=== PATIENT | female | born 1965 | race Two or more races ===

== ENCOUNTER 2024-04-05 13:39 | Emergency (ER) | payer MEDICAID, SELFPAY ==
[2024-04-05 13:43] VITALS: BMI 34.4
[2024-04-05 14:14] VITALS: BP 155/87; PULSE 96; RESP 20; TEMP 39.4; O2SAT 96
--- NOTE | 2024-04-05 14:34 | XR_ITS ---
Examination: PA and lateral chest 2 views TECHNIQUE: Upright PA and lateral chest 2 views. Exam date and time: April 05, 2024 1500 hours INDICATIONS: Fever and back pain beginning 4 days ago. FINDINGS: Normal heart size. The lungs are clear. The osseous structures are intact. IMPRESSION: No active disease.
[2024-04-05] MEDS: IBUPROFEN TAB 400 MG TABLET 800 MG PO (14:37)
--- NOTE | 2024-04-05 14:37 | PD.EDRME ---
Rapid Medical Screening Exam RME Arrival date/time: 04/05/24 13:39 58-year-old female currently on antibiotics for abdominal infection presents with complaints of fever generalized bodyaches and headache Chief Complaint: Headache Time Seen by Provider: 04/05/24 13:56 Vital signs: Vital Signs Temperature 103.0 F H 04/05/24 14:14 Pulse Rate 96 04/05/24 14:14 Respiratory Rate 20 04/05/24 14:14 Blood Pressure 155/87 H 04/05/24 14:14 Pulse Oximetry (%) 96 04/05/24 14:14 Oxygen Delivery Method Room Air 04/05/24 14:14
[2024-04-05 14:59] LABS: Basophils % (Auto) 0 % (0-2.5); Eosinophils % (Auto) 0 % (0-10); Hematocrit 42.9 % (36.0-46.0); Hemoglobin 14.6 g/dL (12.0-16.0); Immature Granulocytes % (Auto) 0 % (0-0); Immature Granulocytes Auto 0.01 Thou/mm3 (0.00-0.00); Lactate (Lactic Acid) 1.1 mMol/L (0.4-2.0); Lymphocytes # (Auto) 0.6 Thou/mm3 (1.0-4.8); Lymphocytes % (Auto) 15 % (10-50); Mean Corpuscular Hemoglobin 28.6 pg (25.0-35.0); Mean Corpuscular Volume 84 fL (80-100); Monocytes # (Auto) 0.1 Thou/mm3 (0.0-0.8); Monocytes % (Auto) 3 % (0-12); Neutrophils # (Auto) 3.1 Thou/mm3 (1.8-7.7); Neutrophils % (Auto) 81 % (37-80); Nucleated Red Blood Cell % 0 /100 WBC (0); Platelet Count 146 Thou/mm3 (140-440); RDW Standard Deviation 43.2 fL (36.4-46.3); White Blood Count 3.8 Thou/mm3 (3.6-11.0)
[2024-04-05 15:25] LABS: Collection Type, Urine Clean Catch
[2024-04-05 15:26] LABS: Alanine Aminotransferase 40 U/L (10-49); Albumin, Serum 4.4 gm/dL (3.4-4.8); Albumin/Globulin Ratio 1.3 (1.2-2.2); Alkaline Phosphatase 73 U/L (46-116); Anion Gap 8 (7-16); Aspartate Amino Transferase 30 U/L (0-34); BUN/Creatinine Ratio 9 Ratio (12-20); Bilirubin,Total 0.6 mg/dL (0.3-1.2); Blood Urea Nitrogen 8 mg/dL (9-23); Carbon Dioxide 28.9 mMol/L (20.0-31.0); Chloride 103 mMol/L (98-107); Creatinine (Component) 0.9 mg/dL (0.6-1.3); Estimated Creatinine Clearance 80.7 mL/min (>60); Globulin 3.4 gm/dL (2.3-3.5); Glucose 106 mg/dL (74-106); Lipase 51 U/L (12-53); Osmolality,Calculated 277 (275-295); Potassium 3.9 mMol/L (3.4-5.1); Sodium 140 mMol/L (136-145); Total Protein 7.8 gm/dL (5.7-8.2); eGFR > 60 See Note
[2024-04-05 15:34] LABS: Bilirubin,Urine Negative (Negative); Blood,Urine Negative (Negative); Clarity,Urine Clear (Clear/Hazy); Color,Urine Lt-Yellow (Lt Yel-Yel); Glucose, Urine Negative (Negative); Ketones,Urine Negative (Negative); Leukocyte Esterase,Urine Negative (Negative); Nitrite,Urine Negative (Negative); Protein,Urine Negative (Neg - Trace); RBC,Urine 3 /hpf (0-3); Specific Gravity,Urine 1.015 (1.001-1.035); Squamous Epithelial Cell,Urine 2 /hpf (0-5); Urobilinogen,Urine Negative mg/dL (0.0-1.0); WBC,Urine 1 /hpf (0-5)
[2024-04-05 20:27] VITALS: BP 124/67; PULSE 70; RESP 18; TEMP 36.8
[2024-04-05 21:00] VITALS: BP 114/72; PULSE 62; RESP 18; TEMP 36.8; O2SAT 97
--- NOTE | 2024-04-05 21:04 | PD.EDHA ---
ED Headache RME/HPI General Chief Complaint: Headache Stated Complaint: EVANS, FEVER, BLE PAIN, BACK PAIN Time Seen by Provider: 04/05/24 13:56 Source: patient Arrival date/time: 04/05/24 13:39 Mode of arrival: ambulatory Limitations: no limitations RME / HPI RME / HPI Narrative: 04/05/24 13:39 58-year-old female currently on antibiotics for abdominal infection presents with complaints of fever generalized bodyaches and headache Dr. Bustillos?s Main ED Evaluation: 58-year-old female presenting to the emergency department with complaints of persistent headache, eye pain, and bilateral lower extremity pain, along with fever and back pain. She reports that her symptoms began on and have worsened over the past week. The patient describes the pain in both her back and head as burning in nature, which has persisted for the past seven days. She also notes associated symptoms, including chills, muscle pain, and generalized body aches. The patient states that she was evaluated at [facility] yesterday but is now seeking further care due to ongoing symptoms without any significant relief. Related Data Home Medications ?Medication ?Instructions ?Recorded ?Confirmed ibuprofen 200 mg tablet 400 mg PO Q6HR PRN PAIN #0 tabs 07/06/14 Previous Rx's ?Medication ?Instructions ?Recorded Hydrocodone/Acetaminophen * (NORCO 1 tab PO Q6H PRN ABDOMINAL PAIN 07/09/14 7.5/325 *) #40 tabs acetaminophen 325 mg tablet (Pain 325 mg PO QID PRN fever 3 days #20 04/06/24 Relief (acetaminophen)) tabs ibuprofen 600 mg tablet 600 mg PO TID PRN fever 3 days #20 04/06/24 tabs ondansetron 4 mg disintegrating 4 mg PO Q8H PRN nausea and 04/06/24 tablet vomiting #20 tabs Allergies Allergy/AdvReac Type Severity Reaction Status Date / Time No Known Allergies Allergy Verified 04/05/24 13:41 Review of Systems Review of Systems Systems Reviewed: All systems reviewed, normal except as documented Past Medical History Past Medical History NEUROLOGIC: Negative Neurological Disorders CARDIAC: Positive Cardiac Disorders and Hypertension; Negative Congestive Heart Failure RESPIRATORY: Negative Respiratory Disorders or Chronic Obstructive Pulmonary Disease (COPD) GASTROINTESTINAL: Positive Gastrointestinal Disorders (H. Pylori) GENITOURINARY: Negative Genitourinary Disorders or Renal Disease MUSCULOSKELETAL: Negative Musculoskeletal Disorders ENT: Negative History of ENT Problems ENDOCRINE: Negative Endocrine Disorders, Diabetes Mellitus Type 1 or Diabetes Mellitus Type 2 HEMATOLOGIC: Negative Blood Disorders Surgical History SURGICAL: Positive Section Social History SMOKING STATUS: Never smoker ED Exam General Limitations: Present no limitations General appearance: Present alert and in no apparent distress Head Head exam: Present atraumatic Eye Eye exam: Present normal appearance, PERRL and EOMI ENT ENT exam: Present normal exam, normal oropharynx and mucous membranes moist Neck Neck exam: Present normal inspection, full ROM and trachea midline Chest Chest inspection: Present normal inspection and symmetric chest wall rise Respiratory Respiratory exam: Present normal lung sounds bilaterally Cardiovascular Cardiovascular exam: Present regular rate, normal rhythm and normal heart sounds Abdominal Exam Abdominal exam: Present soft and normal bowel sounds Extremities Exam Extremities exam: Present normal inspection and full ROM Back Exam Back exam: Present normal inspection and full ROM Neurological Exam Neurological exam: Present alert, oriented X3 and CN II-XII intact Psychiatric Psychiatric exam: Present normal affect and normal mood Skin Skin exam: Present warm, dry, intact and normal color Course Course Course Narrative: 1436 Sepsis alert initiated. Orders made at this time are congruent with ED Adult Sepsis Order List. Re-evaluation is to be completed. 2105 Sepsis reassessment performed consisting of lab review, vitals, physical exam including auscultation of heart, lungs, and visual evaluation of capillary refills, mucosal membranes and extremities. Quality Measures none Orders Category Date Time Status Bedside COVID-19 Antigen Test NOW Care 04/05/24 14:34 Active Bedside Influenza A&B Antigen Test NOW Care 04/05/24 14:[address] Screening NOW Care 04/05/24 21:[address] chest abdomen pelvis w Stat Exams 04/05/24 21:55 Completed XR chest 2V Stat Exams 04/05/24 14:34 Completed Blood Culture (Lab) Stat Lab 04/05/24 14:40 Received CBC Stat Lab 04/05/24 14:45 Completed Comprehensive Metabolic Panel Stat Lab 04/05/24 14:45 Completed Lactate (Lactic Acid) Stat Lab 04/05/24 14:45 Completed Lipase Stat Lab 04/05/24 14:45 Completed Procalcitonin Stat Lab 04/05/24 14:45 Completed Urinalysis Stat Lab 04/05/24 15:15 Completed Urine Culture Stat Lab 04/05/24 15:15 Received Ibuprofen Tab [Motrin Tab] Med 04/05/24 14:11 Discontinued 800 mg PO X1 ONE Sodium Chloride 0.9% 1000 ml [Ns] 1,848 ml Med 04/05/24 21:10 Discontinued IV 1,848 mls/hr Vital Signs Vital signs: Vital Signs Temperature 103.0 F H 04/05/24 14:14 Pulse Rate 96 04/05/24 14:14 Respiratory Rate 20 04/05/24 14:14 Blood Pressure 155/87 H 04/05/24 14:14 Pulse Oximetry (%) 96 04/05/24 14:14 Oxygen Delivery Method Room Air 04/05/24 14:14 Headache MDM Narrative MDM Narrative:: The differential diagnosis includes appendicitis, diverticulitis, nephrolithiasis (kidney stone), urinary tract infection (UTI), and a viral illness. Scribe Attestation: I, Regis Slade, am scribing for and in the presence of Dr. Bustillos. Provider Notation: Although this document has been carefully reviewed, there may still be some phonetic and other typographical errors. These errors are purely grammatical due to imperfections in the software program and should not be construed in any way to compromise the substance of the patient's medical care during this visit. Patient data External records reviewed:: [facility] previous records Clinical information provided by:: patient Social determinants that could affect healthcare access:: none Patient has the following chronic illnesses:: see PMH How is presenting disease/condition affected by chronic disease/condition?: uneffected by Evaluation data The following diagnostics were reviewed and interpreted by me:: lab results, radiology exam(s) and EKG tracing(s) Lab and/or radiology exams considered but not ordered:: none Interpretation Summary: I personally reviewed the radiology data and agree with the radiologist's interpretation. Examination: PA and lateral chest 2 views TECHNIQUE: Upright PA and lateral chest 2 views. Exam date and time: April 05, 2024 1500 hours INDICATIONS: Fever and back pain beginning 4 days ago. FINDINGS: Normal heart size. The lungs are clear. The osseous structures are intact. IMPRESSION: No active disease. Dictated By: Juan A Bhandari MD Examination: CT chest abdomen pelvis with intravenous contrast Time of exam: April 05, 2024 1052 hours INDICATIONS: Headache back pain fever right lower abdominal pain today Findings: No thoracic aortic aneurysmal dilatation No pulmonary artery emboli on this non-CTA study No paratracheal tracheobronchial or bronchopulmonary adenopathy 3 mm pulmonary nodule left upper lobe image 144 No lobar pneumonia or pulmonary edema Absent gallbladder No liver or splenic lesion No pancreatic mass Focal areas of edema in the right kidney for instance axial image 159 No renal or ureteral calculi, no hydronephrosis Aorta normal size Tiny fat-containing umbilical hernia Normal appendix No bowel obstruction No diverticulitis Mildly distended urinary bladder Absent uterus No adnexal mass Advanced degenerative disc disease L4-L5, L5-S1 IMPRESSION: 3 mm pulmonary nodule left upper lobe, recommend 6 month follow-up CT chest without contrast to document stability of this nodule No mediastinal lymphadenopathy, no pneumonia or pulmonary edema Subtle edema in the right kidney, consider pyelonephritis, no renal or ureteral calculi, no hydronephrosis Normal appendix No bowel obstruction diverticulitis or free air Advanced degenerative disc disease L4-L5, L5-S1 Dictated By: Juan A Bhandari MD Medications / Prescriptions Medications or Prescriptions considered but not ordered:: none Medication administrations:: Medication Administration History Discontinued Medications Sodium Chloride (Ns) 1,848 mls @ 1,848 mls/hr 30 ml/kg infuse over 60 min (1848 ml) IV .Q1H ONE Stop: 04/05/24 22:09 Last Infusion: 04/05/24 22:43 Dose: Infused Documented By: Admin: 04/05/24 21:21 Dose: 1,848 mls/hr Documented By: FAUSTO Comments: 1848 Ibuprofen (Ibuprofen Tab 400 Mg Tablet) 800 mg PO X1 ONE Stop: 04/05/24 14:12 Last Admin: 04/05/24 14:37 Dose: 800 mg Documented By: KF as above, if any Consultations Consultation(s) initiated? (list below): No Diagnosis Differential diagnosis headache: other (see narrative) Most likely diagnosis given after review of the tests above:: see clinical impression Admission Indicated Admission indicated?: not indicated Admission Request Was there a request for admission?: No Disposition Plan Disposition Plan: Discharge Discharge Attestation Discharge Attestation: The patient and all family members were given an opportunity to ask questions and understood the discharge instructions. Discharge instructions specifically effects, indications for sooner follow up or return to the emergency department, and the expected course of current diagnosis. Patient condition: Stable Discharge Plan Plan Patient Disposition: HOME (Self Care) Patient condition on transfer: Stable Prescriptions/Referrals Prescriptions/Med Rec: New ibuprofen 600 mg tablet 600 mg PO TID PRN (Reason: fever) 3 Days Qty: 20 0RF Rx Instructions: Take with food acetaminophen [Pain Relief (acetaminophen)] 325 mg tablet 325 mg PO QID PRN (Reason: fever) 3 Days Qty: 20 0RF ondansetron 4 mg tablet,disintegrating 4 mg PO Q8H PRN (Reason: nausea and vomiting) Qty: 20 0RF No Action ibuprofen 200 MG tablet 400 mg PO Q6HR PRN (Reason: PAIN) Qty: 0 Hydrocodone/Acetaminophen * (NORCO 7.5/325 *) 1 TAB tablet 1 tab PO Q6H PRN (Reason: ABDOMINAL PAIN) Qty: 40 0RF Referrals: No Primary/Family,Physician [Primary Care Provider] - In 1 week Problem List Clinical Impression: Fever, Pulmonary nodule Patient/Caregiver Discharge Instructions Education Materials: ED FUO Adult, ED Pulmonary Nodule, Solitary Additional Instructions: 1. YOU HAVE A 3 mm pulmonary nodule left upper lobe, recommend 6 month follow-up CT chest without contrast to document stability of this nodule, that is emergency however you will need to get followed up with your primary care physician. Failure to follow-up can lead to missed or failed diagnosis. 2. You can take [id number] Tylenol 650 mg 3 times a day for fever. You can additionally add Motrin 600 mg 3 times a day with food for the next 2 to 3 days to control your fever if needed. 3. Stay hydrated with Pedialyte and Gatorade. Return to emergency department for any worsening symptoms, you cannot tolerate liquids, or any other concerns Print Language: [place] Stand Alone Forms: [employer] Award Info., Work/School Release, Patient Portal Info Letter
--- NOTE | 2024-04-05 21:08 | PC.NURSE ---
Initial contact with pt, seen by Dr. Bustillos.
[2024-04-05] MEDS: SODIUM CHLORIDE 0.9% 1000 ML 1,848 ML 1848 ML IV (21:21)
--- NOTE | 2024-04-05 21:55 | XR_ITS ---
Examination: CT chest with intravenous contrast CT abdomen with intravenous contrast CT pelvis with intravenous contrast 2-D coronal and sagittal reconstructions Time of exam: April 05, 2024 1052 hours INDICATIONS: Headache back pain fever right lower abdominal pain today CTDI: vol (mGy) : 26.71 DLP: (mGycm): 1357 Technique: Multiple axial images of the chest, abdomen and pelvis with intravenous contrast, 3.0 mm slice thickness. Images obtained post intravenous injection Isovue 370 60 cc. 2-D sagittal and coronal reconstructions. Low dose protocols were performed. One or more of the following dose reduction techniques were used; automated exposure control, adjustment of the mA and/or KV according to patient size, use of iterative reconstruction technique. Findings: No thoracic aortic aneurysmal dilatation No pulmonary artery emboli on this non-CTA study No paratracheal tracheobronchial or bronchopulmonary adenopathy 3 mm pulmonary nodule left upper lobe image 144 No lobar pneumonia or pulmonary edema Absent gallbladder No liver or splenic lesion No pancreatic mass Focal areas of edema in the right kidney for instance axial image 159 No renal or ureteral calculi, no hydronephrosis Aorta normal size Tiny fat-containing umbilical hernia Normal appendix No bowel obstruction No diverticulitis Mildly distended urinary bladder Absent uterus No adnexal mass Advanced degenerative disc disease L4-L5, L5-S1 IMPRESSION: 3 mm pulmonary nodule left upper lobe, recommend 6 month follow-up CT chest without contrast to document stability of this nodule No mediastinal lymphadenopathy, no pneumonia or pulmonary edema Subtle edema in the right kidney, consider pyelonephritis, no renal or ureteral calculi, no hydronephrosis Normal appendix No bowel obstruction diverticulitis or free air Advanced degenerative disc disease L4-L5, L5-S1
[2024-04-05 22:00] VITALS: BP 119/59; PULSE 68; RESP 18; O2SAT 98
--- NOTE | 2024-04-05 22:46 | PC.NURSE ---
To ct-scan via gurney.
[2024-04-05 23:16] VITALS: BP 116/73; PULSE 77; RESP 18; TEMP 37; O2SAT 98
[2024-04-06] VITALS: BP 117/58; PULSE 68; RESP 18; O2SAT 95
[2024-04-06 01:08] VITALS: BP 126/75; PULSE 63; RESP 18; TEMP 37.3; O2SAT 95
[2024-04-06 03:00] VITALS: BP 119/62; PULSE 68; RESP 19; O2SAT 98
[2024-04-06 04:09] VITALS: BP 128/77; PULSE 66; RESP 18; TEMP 37.7; O2SAT 98
[2024-04-06] MEDS: ACETAMINOPHEN 325 MG TABLET 650 MG PO (04:59)
[2024-04-06] MEDS: ONDANSETRON ODT 4 MG TABRAP PO (04:59)
== END 2024-04-06 05:12 | disposition home or self-care (01) ==
PROVIDERS: Nurse Practitioner Primary Care; Emergency Provider Emergency Medicine
DX: R50.9 Fever, unspecified (principal); R91.1 Solitary pulmonary nodule
CPT/HCPCS: 36415; 71046; 71260; 74177; 80053; 81001; 83605; 83690; 84145; 85025; 87040; 87077; 87086; 87186; 87400; 87811; 96360; 99285; A4649; J7030; Q0162; Q9967; A9270